=== PATIENT | female | born 1980 | race Caucasian/White ===

== ENCOUNTER 2018-02-16 19:19 | Emergency (ER) | payer BC, OTHER ==
[~2018-02-16] VITALS: Ht 177.8 cm; Wt 71.0 kg
[2018-02-16 19:22] VITALS: TEMP 36.8; Ht 177.8 cm; Wt 71.0 kg
[2018-02-16 20:05] LABS: BASO % 0.4 %; BASO ABS # 0.03 K/uL (0-0.2); EOS % 1.7 %; EOS ABS # 0.12 K/uL (0-0.5); HEMATOCRIT 38.9 % (37-47); HEMOGLOBIN 13.1 g/dL (12.0-16.0); IG# 0.03 K/uL (0.00-0.02); LYMPH % 20.1 %; MEAN CORPUSCULAR HEMOGLOBIN 29.6 pg (25-34); MEAN CORPUSCULAR HGB CONC 33.7 g/dl (32-36); MEAN PLATELET VOLUME 10.1 fL (7.4-10.4); MONO % 6.6 %; MONO ABS # 0.46 K/uL (0.11-0.59); NEUT % 70.8 %; NEUT ABS # 4.94 K/uL (1.4-6.5); PLATELET COUNT 172 K/uL (130-400); RED CELL DISTRIBUTION WIDTH SD 42.5 fL (36.4-46.3); WHITE BLOOD COUNT 6.98 K/uL (4.8-10.8)
--- NOTE | 2018-02-16 20:12 | DIAGNOSTIC IMAGING REPORT ---
CHEST ONE VIEW PORTABLE CLINICAL HISTORY: CHEST PAIN COMPARISON STUDY: No previous studies for comparison. FINDINGS: The bones soft tissues and hemidiaphragms are normal. The cardiomediastinal silhouette is normal. The lungs are clear. The pulmonary vasculature is normal. IMPRESSION: Negative chest. The above report was generated using voice recognition software. It may contain grammatical, syntax or spelling errors. Electronically signed by: Anurag Price M.D. 02/16/2018 8:11 PM Dictated Date/Time: 02/16/2018 8:10 PM
[2018-02-16 20:23] LABS: ALBUMIN 3.3 gm/dl (3.4-5.0); ALT/SGPT 22 U/L (12-78); BLOOD UREA NITROGEN 10 mg/dl (7-18); CALCIUM 8.4 mg/dl (8.5-10.1); CARBON DIOXIDE 25 mmol/L (21-32); CREATININE 0.89 mg/dl (0.60-1.20); GLUCOSE 101 mg/dl (70-99); LIPASE 130 U/L (73-393); POTASSIUM 3.7 mmol/L (3.5-5.1); SODIUM 137 mmol/L (136-145)
[2018-02-16 20:26] LABS: ALKALINE PHOSPHATASE 55 U/L (45-117); AST/SGOT 17 U/L (15-37); TOTAL PROTEIN 6.6 gm/dl (6.4-8.2)
--- NOTE | 2018-02-16 20:26 | EMERGENCY ROOM VISIT NOTE ---
History Report prepared by Isabell: Aida Khoury Under the Supervision of: Dr. Johnny Damico M.D. First contact with patient: 19:30 Chief Complaint: RESPIRATORY PROBLEMS Stated Complaint: LOWER LEFT SIDE PAIN,HURTS TO BREATHE Nursing Triage Summary: Pt reports pain in lower left torso x 3 days, hurts to breathe. Denies injury. Pt states, "I get lightheaded a lot, it's not new with this pain. I have low blood pressure problems. Last weekend I had a cough, runny nose, tired, sore throat." History of Present Illness The patient is a 37 year old female who presents to the Emergency Room with complaints of persistent left lower abdominal pain starting 3 days ago. The pain worsens with breathing and movement. She notes that she was sick last week with sore throat and rhinorrhea. She has had some diarrhea which is not abnormal for her. She denies any cough, fever, chest pain, headache, rash, or calf pain. She denies any trauma. She denies any chance of . She has had a tubal ligation. She is not on control. She has a history of hepatitis C. She has a history of IVDA. She has not used drugs since 2012. She is on Vivitrol. She does smoke. She denies any alcohol use. She notes that her spleen has become enlarged before. She denies any history of lung problems. Source of History: patient Onset: 3 days ago Position: abdomen (LLQ) Timing: other (persistent) Modifying Factors (Worsening): breathing, movement Associated Symptoms: + sorethroat (resolved), + diarrhea, No fevers, No headache, No cough, No chest pain, No rash Review of Systems See HPI for pertinent positives & negatives. A total of 10 systems reviewed and were otherwise negative. Past Medical & Surgical Medical Problems: (1) Hepatitis C Surgical Problems: (1) S/P tubal ligation Old medical records were reviewed. Nurse's notes were reviewed and I agree with. Family History No pertinent family history stated. Social History Smoking Status: Current Every Day Smoker Alcohol Use: none Drug Use: none Marital Status: Occupation Status: employed Current/Historical Medications Scheduled Amoxicillin & Pot Clavulanate (Augmentin 875-125 mg), 875 MG PO BID Aripiprazole (Abilify), 5 MG PO DAILY Doxepin (Sinequan), 1 TAB PO DAILY Prazosin Hcl (Minipress), 2 MG PO DAILY Risperidone (Risperdal), 4 MG PO DAILY Allergies Coded Allergies: No Known Allergies (Unverified , 02/16/18) Physical Exam Vital Signs Date Time Temp Pulse Resp B/P (MAP) Pulse Ox O2 Delivery O2 Flow Rate FiO2 02/16/18 22:31 56 18 105/66 98 02/16/18 21:50 54 18 105/65 96 Room Air 02/16/18 19:22 36.8 81 16 123/72 98 Room Air Physical Exam General: Non-ill appearing young female in no acute distress. HEENT: Normal cephalic atraumatic. Pupils are equal round and reactive to light. Extraocular movements are intact. Oropharynx is pink with moist mucous membranes. No swelling of the mouth lips or tongue. Neck: Supple with a midline trachea. No meningeal signs or stiffness, no JVD or bruits. No Stridor. Chest: Clear to auscultation bilaterally. No wheezes or rhonchi. No increased work of breathing. Heart: regular rate and rhythm. Abdomen: Soft, mildly tender in the left upper abdomen, no splenomegaly appreciated, nondistended without rebound guarding or rigidity. Extremities: No cyanosis clubbing or edema. No calf tenderness or assymetry Spine/Back. Non tender to palpation. No CVA tenderness Skin: Good turgor without rashes. Neurologic exam: Cranial nerves two through 12 are intact. Motor and sensation are intact and symmetrical throughout. Medical Decision & Procedures ER Provider Diagnostic Interpretation: X-ray results as stated below per interpretation by me and the radiologist. Radiology results as stated below per my review and radiologist interpretation: CHEST ONE VIEW PORTABLE CLINICAL HISTORY: CHEST PAIN COMPARISON STUDY: No previous studies for comparison. FINDINGS: The bones soft tissues and hemidiaphragms are normal. The cardiomediastinal silhouette is normal. The lungs are clear. The pulmonary vasculature is normal. IMPRESSION: Negative chest. The above report was generated using voice recognition software. It may contain grammatical, syntax or spelling errors. Electronically signed by: Anurag Price M.D. 02/16/2018 8:11 PM Dictated Date/Time: 02/16/2018 8:10 PM ABD/PELVIS IV CONTRAST ONLY CT DOSE: 341.68 mGy.cm HISTORY: Pain. Nausea. eval for LUQ pain, splenic disease TECHNIQUE: Multiaxial CT images of the abdomen and pelvis were performed following the use of intravenous contrast. A dose lowering technique was utilized adhering to the principles of ALARA. COMPARISON STUDY: None. FINDINGS: Small bilateral pleural effusions. Basilar dependent atelectasis. Liver enhances uniformly. The spleen is normal. Kidneys enhance appropriately. The upper abdominal bowel pattern is unremarkable. There are findings of mild pericolonic infiltrative change of the mid descending colon. This is suggestive of a focal diverticulitis. Several diverticuli are present. The bowel pattern otherwise is nonobstructive. The appendix is normal. Uterus is anteflexed. There are small bilateral ovarian cysts measuring up to 1.5 cm. There is small amount of free fluid within the pelvic cul-de-sac presumably physiologic. IMPRESSION: 1. Mild mid descending colonic diverticulitis. 2. Mild pericolonic infiltrative change. 3. No evidence for abscess or collection. 4. Small bilateral ovarian cysts with a small amount of physiologic free fluid within the pelvic cul-de-sac. 5. Normal spleen. 6. Very small bilateral pleural effusions. The above report was generated using voice recognition software. It may contain grammatical, syntax or spelling errors. Electronically signed by: Anurag Price M.D. 02/16/2018 9:59 PM Dictated Date/Time: 02/16/2018 9:52 PM Laboratory Results 02/16/18 19:50 Red Blood Count 4.42, Mean Corpuscular Volume 88.0, Mean Corpuscular Hemoglobin 29.6, Mean Corpuscular Hemoglobin Concent 33.7, Mean Platelet Volume 10.1, Neutrophils (%) (Auto) 70.8, Lymphocytes (%) (Auto) 20.1, Monocytes (%) (Auto) 6.6, Eosinophils (%) (Auto) 1.7, Basophils (%) (Auto) 0.4, Neutrophils # (Auto) 4.94, Lymphocytes # (Auto) 1.40, Monocytes # (Auto) 0.46, Eosinophils # (Auto) 0.12, Basophils # (Auto) 0.03 02/16/18 19:50 Test 02/16/18 19:50 02/16/18 19:55 White Blood Count 6.98 K/uL (4.8-10.8) Red Blood Count 4.42 M/uL (4.2-5.4) Hemoglobin 13.1 g/dL (12.0-16.0) Hematocrit 38.9 % (37-47) Mean Corpuscular Volume 88.0 fL (80-100) Mean Corpuscular Hemoglobin 29.6 pg (25-34) Mean Corpuscular Hemoglobin Concent 33.7 g/dl (32-36) Platelet Count 172 K/uL (130-400) Mean Platelet Volume 10.1 fL (7.4-10.4) Neutrophils (%) (Auto) 70.8 % Lymphocytes (%) (Auto) 20.1 % Monocytes (%) (Auto) 6.6 % Eosinophils (%) (Auto) 1.7 % Basophils (%) (Auto) 0.4 % Neutrophils # (Auto) 4.94 K/uL (1.4-6.5) Lymphocytes # (Auto) 1.40 K/uL (1.2-3.4) Monocytes # (Auto) 0.46 K/uL (0.11-0.59) Eosinophils # (Auto) 0.12 K/uL (0-0.5) Basophils # (Auto) 0.03 K/uL (0-0.2) RDW Standard Deviation 42.5 fL (36.4-46.3) RDW Coefficient of Variation 13.0 % (11.5-14.5) Immature Granulocyte % (Auto) 0.4 % Immature Granulocyte # (Auto) 0.03 K/uL (0.00-0.02) D-Dimer 380 ug/L FEU (0-500) Anion Gap 6.0 mmol/L (3-11) Est Creatinine Clear Calc Drug Dose 93.6 ml/min Estimated GFR () 96.0 Estimated GFR (Non- 82.8 BUN/Creatinine Ratio 11.5 (10-20) Calcium Level 8.4 mg/dl (8.5-10.1) Total Bilirubin 0.2 mg/dl (0.2-1) Direct Bilirubin < 0.1 mg/dl (0-0.2) Aspartate Amino Transf (AST/SGOT) 17 U/L (15-37) Alanine Aminotransferase (ALT/SGPT) 22 U/L (12-78) Alkaline Phosphatase 55 U/L (45-117) Total Protein 6.6 gm/dl (6.4-8.2) Albumin 3.3 gm/dl (3.4-5.0) Lipase 130 U/L (73-393) Human Chorionic Gonadotropin, Qual NEG (NEG) Bedside Troponin I < 0.030 ng/ml (0-0.045) Laboratory studies as stated above per my review. ED Course 1930: Past medical records reviewed. The patient was evaluated in room A11B, and a complete history and physical examination were performed. 2111: I reevaluated the patient. She is resting comfortably. CT abdomen was ordered. 2155: I reevaluated the patient. She is back from CT, resting comfortably. 2204: Upon reevaluation, the patient is resting comfortably. I discussed the results and treatment plan with her. She verbalized agreement of the treatment plan. The patient was discharged home. 2214: Augmentin 875 mg 1 homepack. Medical Decision Differentials include, but are not limited to; PE, pneumothorax, splenomegaly, intraabdominal process, infection, electrolyte or metabolic abnormality. This patient comes in as described above she is having left upper abdominal pain near the lower chest. She is mildly tender on exam. she has had no trauma . she appears non-ill. it hurts when she breathes. She appears in no respiratory distress. She is non-hypoxemic. IV access established EKG and chest x-ray were obtained. Multiple blood testing was obtained. Chest x-ray does not show any infiltrate in the base or pneumothorax or any pulmonary abnormality. On exam, I do not palpate a enlarged spleen. She has no lymphadenopathy in her neck or anything to suggest mono. She has no white count or fever to suggest infection. She is not . She is no acute electrolyte or metabolic abnormalities. Her chest x-ray was unremarkable. She has nothing to suggest cardiac disease and troponin is negative. With a normal d-dimer in the setting of a low pretest probability setting makes PE highly unlikely. I did do a CAT scan of her abdomen. There is no evidence of splenomegaly. she does have mild colonic diverticulitis. In light of this, I will put her on Augmentin 875 mg twice a day for 10 days. She should continue to use [id number] pain medication but do not exceed the [id number] recommended dosages. She is happy with the plan and was discharged home. she should follow-up with her regular doctor later this week and return if not better in the next 24-48 hours, fever chills, worsening of symptoms, any new problems or concerns. Medication Reconcilliation Current Medication List: was personally reviewed by me Blood Pressure Screening Patient's blood pressure: Normal blood pressure Blood pressure disposition: Did not require urgent referral Impression Primary Impression: LUQ abdominal pain Additional Impression: Diverticulitis Scribe Attestation The scribe's documentation has been prepared under my direction and personally reviewed by me in its entirety. I confirm that the note above accurately reflects all work, treatment, procedures, and medical decision making performed by me. Departure Information Dispostion Home / Self-Care Prescriptions Amoxicillin & Pot Clavulanate (Augmentin 875-125 mg) 1 Tab Tab 875 MG PO BID for 10 Days, #20 TAB Prov: Johnny Damico M.D. 02/16/18 Referrals No Doctor, Assigned (PCP) Forms HOME CARE DOCUMENTATION FORM, IMPORTANT VISIT INFORMATION, WORK / SCHOOL INSTRUCTIONS Patient Instructions Diverticulitis Deuce, My [facility] Additional Instructions Rest. Drink plenty of fluids. Use Augmentin 875 mg twice a day for 10 days totalantibiotic Return if: Increasing pain, fever or chills, failure of symptoms to resolve in the next 24-48 hours, any new problems or concerns Follow-up with your regular doctor the next 2-3 days May use [id number] ibuprofen or Tylenol for pain. Do not exceed the over- the-counter recommended dosages. Problem Qualifiers
[2018-02-16] MEDS ORDERED: PRAZ2CAP PO (20:53)
[2018-02-16] MEDS ORDERED: ABL/5 PO (20:53)
[2018-02-16] MEDS ORDERED: DOXE10CA PO (20:53)
[2018-02-16] MEDS ORDERED: RISP4TAB7 PO (20:53)
[2018-02-16] MEDS ORDERED: OPTIRAY 320 IV PRN (21:30)
--- NOTE | 2018-02-16 22:01 | DIAGNOSTIC IMAGING REPORT ---
ABD/PELVIS IV CONTRAST ONLY CT DOSE: 341.68 mGy.cm HISTORY: Pain. Nausea. eval for LUQ pain, splenic disease TECHNIQUE: Multiaxial CT images of the abdomen and pelvis were performed following the use of intravenous contrast. A dose lowering technique was utilized adhering to the principles of ALARA. COMPARISON STUDY: None. FINDINGS: Small bilateral pleural effusions. Basilar dependent atelectasis. Liver enhances uniformly. The spleen is normal. Kidneys enhance appropriately. The upper abdominal bowel pattern is unremarkable. There are findings of mild pericolonic infiltrative change of the mid descending colon. This is suggestive of a focal diverticulitis. Several diverticuli are present. The bowel pattern otherwise is nonobstructive. The appendix is normal. Uterus is anteflexed. There are small bilateral ovarian cysts measuring up to 1.5 cm. There is small amount of free fluid within the pelvic cul-de-sac presumably physiologic. IMPRESSION: 1. Mild mid descending colonic diverticulitis. 2. Mild pericolonic infiltrative change. 3. No evidence for abscess or collection. 4. Small bilateral ovarian cysts with a small amount of physiologic free fluid within the pelvic cul-de-sac. 5. Normal spleen. 6. Very small bilateral pleural effusions. The above report was generated using voice recognition software. It may contain grammatical, syntax or spelling errors. Electronically signed by: Anurag Price M.D. 02/16/2018 9:59 PM Dictated Date/Time: 02/16/2018 9:52 PM
[2018-02-16] MEDS ORDERED: AMOX875T PO (22:11)
[2018-02-16] MEDS ORDERED: AMOXICIL/CLAVU 875MG HOME PACK PO ONE (22:15)
[2018-02-16 22:31] VITALS: BP 105/66; PULSE 56; O2SAT 98
== END 2018-02-16 22:30 | disposition home or self-care (01) ==
LOC: C.EDB 19:21 → C.EDA 22:30
DX: K57.92 Diverticulitis of intestine, part unspecified, without perforation or abscess without bleeding (principal); B19.20 Unspecified viral hepatitis C without hepatic coma; F17.200 Nicotine dependence, unspecified, uncomplicated; Z98.51 Tubal ligation status